=== PATIENT | female | born 1955 | race Caucasian/White ===

== ENCOUNTER → 2021-12-11 08:55 | Outpatient (CLI) | payer MEDICARE, OTHER, SELFPAY ==
[2021-12-11 10:14] LABS: Cholesterol 204 mg/dL (140-199); HDL Cholesterol 58 mg/dL (40-60); LDL Cholesterol Calculated 130 mg/dL (<100); Triglycerides 78 mg/dL (35-150)
== END ==
PROVIDERS: PCP Internal Medicine; Referring Provider Internal Medicine Cardiovascular Disease; Visit Provider Internal Medicine Cardiovascular Disease
DX: I10 Essential (primary) hypertension (principal)
CPT/HCPCS: 36415; 80061

== ENCOUNTER → 2022-03-16 13:46 | Outpatient (CLI) | payer MEDICARE, OTHER, SELFPAY ==
--- NOTE | 2022-03-16 13:52 | DI.RAD.S_ITS ---
PROCEDURE: XR HAND LT 2V INDICATIONS: GANGLION CYST OF FINGER TECHNIQUE: 2 views of the hand(s) acquired. COMPARISON: None. FINDINGS: Bones: No fractures or dislocations. Carpal bones are normally aligned. No suspicious bony lesions. Generalized decrease in osseous mineralization noted. Soft tissues: No suspicious soft tissue calcifications. Mild soft tissue swelling noted at the 5th proximal interphalangeal joint IMPRESSION: Mild 5th finger soft tissue swelling. No lytic or blastic lesion. Approved by: Fahad Mcdonough M.D. on 03/16/2022 at 14:05
[2022-03-16 14:49] LABS: BUN Creatinine Ratio 25.8 (6-22); Blood Urea Nitrogen 16 mg/dL (7-17); Carbon Dioxide 29 mmol/L (22-32); Chloride 102 mmol/L (98-107); Estimated Glomerular Filt Rate > 60 mL/min (>60); Glucose 102 mg/dL (80-110); HEMOLYSIS < 15 (0-50); Potassium 4.7 mmol/L (3.4-5.1); Sodium 137 mmol/L (137-145)
[2022-03-16 16:04] LABS: HIV 1 & 2 Ab/Ag 4th Gen Combo NEGATIVE (NEGATIVE); Hep C Virus Ab w/Reflex Quant NEGATIVE s/c (NEGATIVE)
== END ==
PROVIDERS: PCP Internal Medicine; Referring Provider Internal Medicine; Visit Provider Internal Medicine
DX: Z00.00 Encounter for general adult medical examination without abnormal findings (principal); M67.449 Ganglion, unspecified hand; I10 Essential (primary) hypertension; M79.89 Other specified soft tissue disorders
CPT/HCPCS: 36415; 73120; 80048; 86803; 87389

== ENCOUNTER → 2022-06-17 10:39 | Outpatient (CLI) | payer MEDICARE, OTHER, SELFPAY ==
[2022-06-17 12:38] LABS: Cholesterol 208 mg/dL (140-199); HDL Cholesterol 69 mg/dL (40-60); LDL Cholesterol Calculated 122 mg/dL (<100); Triglycerides 87 mg/dL (35-150)
== END ==
PROVIDERS: PCP Internal Medicine; Referring Provider Internal Medicine Cardiovascular Disease; Visit Provider Internal Medicine Cardiovascular Disease
DX: E78.5 Hyperlipidemia, unspecified (principal)
CPT/HCPCS: 36415; 80061

== ENCOUNTER → 2022-12-20 15:04 | Outpatient (CLI) | payer MEDICARE, OTHER, SELFPAY ==
--- NOTE | 2022-12-20 15:09 | DI.MRI.S_ITS ---
PROCEDURE: MR LUMBAR SPINE WO CON INDICATIONS: Radiculopathy, lumbar region TECHNIQUE: Noncontrast sagittal T1 spin echo and T2 fast echo, sagittal STIR, and T2 fast spin echo through the lumbar spine. In cases with scoliosis, additional coronal T2 fast spin echo may be performed. COMPARISON: None. FINDINGS: Retrolisthesis of L3 on L4 measuring 3 millimeters. Retrolisthesis of L2 on L3 measuring 4 millimeters. Otherwise normal alignment. Vertebral body heights maintained. No suspicious focal marrow signal abnormality. Discogenic marrow edema at the opposing L1-L2 endplates and periarticular bone marrow edema adjacent to the L1-L2 facets. Diffuse bulky facet hypertrophy at every level in the lumbar spine. Normal position and appearance of the conus. Regional soft tissues normal. T12-L1: Disc bulge flattens the ventral thecal sac and slightly flattens the ventral conus. Mild displacement of the descending L1 nerve roots in both subarticular zones by disc material and posterior osteophytic ridging of the endplates. Mild neural foraminal narrowing on the left due to foraminal component of the disc bulge and facet hypertrophy. L1-L2: Moderate spinal canal stenosis due to diffuse disc bulge and superimposed broad-based posterior disc protrusion along with posterior osteophytic ridging of the endplates. Bulky facet hypertrophy further contributes to spinal canal narrowing and left subarticular zone narrowing. There is displacement and crowding of multiple descending nerve roots, particularly in the left subarticular zone with possible impingement of the descending left L2 nerve roots. Foraminal components of the disc bulge and facet hypertrophy combine to produce moderate-severe neural foraminal narrowing on the left and mild neural foraminal narrowing on the right. L2-L3: Diffuse disc bulge flattens the ventral thecal sac and mildly displaces the descending L3 nerve roots in both subarticular zones. Moderate right and moderate-severe left neural foraminal narrowing due to foraminal components of the disc bulge and facet hypertrophy. L3-L4: Diffuse disc bulge flattens the ventral thecal sac with displacement of the descending L4 nerve roots in both subarticular zones, more pronounced on the right where there is possible impingement. Moderate to severe bilateral neural foraminal narrowing due to foraminal components of the disc bulge and facet hypertrophy. L4-L5: Diffuse disc bulge and a superimposed broad-based posterior disc protrusion flatten and indent the ventral thecal sac. Mild displacement of the descending right L5 nerve roots in the right subarticular zone. Bulky facet hypertrophy. A moderate left and severe right neural foraminal narrowing. L5-S1: Diffuse disc bulge without mass effect on the descending S1 nerve roots. Moderate bilateral foraminal narrowing. IMPRESSION: Overall moderate to severe multilevel multifactorial degenerative changes as detailed above. Dictated by: Juan Daniel Painter M.D. on 12/21/2022 at 8:43 Approved by: Juan Daniel Painter M.D. on 12/21/2022 at 8:46
== END ==
PROVIDERS: PCP Student in an Organized Health Care Education/Training Program; Referring Provider Orthopaedic Surgery; Visit Provider Orthopaedic Surgery
DX: M47.26 Other spondylosis with radiculopathy, lumbar region; M47.27 Other spondylosis with radiculopathy, lumbosacral region
CPT/HCPCS: 72148

== ENCOUNTER → 2023-03-07 11:48 | Outpatient (CLI) | payer MEDICARE, OTHER, SELFPAY ==
--- NOTE | 2023-03-07 13:31 | DI.MRI.S_ITS ---
PROCEDURE: MR HIP LT WO CON INDICATIONS: Iliotibial band syndrome, left leg TECHNIQUE: Noncontrast coronal T1 spin echo and STIR through the bony pelvis. Coronal and axial T2 fast spin echo with fat saturation, sagittal T1 spin echo, and oblique axial T2 fast spin echo with fat saturation through the hip. COMPARISON: None. FINDINGS: Image quality: Excellent. Bones and joints: Mild periarticular osteophyte formation at the bilateral hip joints. Bone marrow of the pelvic ring and proximal femurs show normal signal throughout. No intraosseous lesions or fractures. No avascular necrosis of the femoral heads. The visualized lower lumbar spine appears normally aligned. Tendons and ligaments: The gluteus medius and minimus tendons appear intact, without associated muscle atrophy. Moderate T2 signal elevation within and adjacent to the femoral insertion sites of the left gluteus medius and minimus tendons. The nearby proximal iliotibial band also appears intact. The iliopsoas tendon appears intact, without adjacent bursal fluid collections or evidence for impingement syndrome. The origin of the hamstring tendon is intact at the ischial tuberosity, as well as the associated sacrotuberous ligament. Mild T2 signal elevation within the proximal hamstring tendon and surrounding soft tissues. The straight and reflected heads of the rectus femoris muscle origin appear intact, as well as the conjoint tendon. The ligamentum teres appears intact where visualized. Labrum and cartilage: There is diffuse degenerative fraying of the left hip labrum. Cartilage surface of the femoral head appears of normal thickness. The alpha angle of the femur is within normal limits at less than 55 degrees. Soft tissues: Visualized muscles demonstrate normal bulk and internal signal. Quadratus femoris muscle demonstrates no internal edema to suggest ischiofemoral impingement. The proximal sciatic neurovascular bundle appears normal adjacent to the hamstring tendons. No free pelvic fluid. Bladder wall thickness is normal. Genitourinary structures and bowel loops appear normal where visualized. IMPRESSION: 1. Partial-thickness tears of the left gluteus medius and minimus tendons. 2. Hamstring tendinopathy. 3. Left hip osteoarthritis with associated with degenerative left hip labral fraying. Dictated by: Michelle Mauricio M.D. on 03/07/2023 at 13:25 Transcribed by: JENNYFER on 03/07/2023 at 13:26 Approved by: Michelle Mauricio M.D. on 03/07/2023 at 16:46
== END ==
PROVIDERS: PCP Student in an Organized Health Care Education/Training Program; Referring Provider Physical Medicine & Rehabilitation; Visit Provider Physical Medicine & Rehabilitation
DX: M76.32 Iliotibial band syndrome, left leg (principal); S39.013A Strain of muscle, fascia and tendon of pelvis, initial encounter; M16.12 Unilateral primary osteoarthritis, left hip
CPT/HCPCS: 73721

== ENCOUNTER → 2024-01-07 11:00 | Outpatient (CLI) | payer MEDICARE, OTHER, SELFPAY ==
[2024-01-07 12:46] LABS: Add Manual Diff / Slide Review NO; Basophils Absolute Auto 0 /uL (0-100); Basophils Percent Auto 0.6 % (0-2); Eosinophils Absolute Auto 100 /uL (0-450); Eosinophils Percent Auto 2.3 % (2-4); Hematocrit 36.9 % (36-46); Hemoglobin 12.5 g/dL (12.0-16.0); Lymphocytes Absolute Auto 3600 /uL (1100-4500); Lymphocytes Percent Auto 59.4 % (25-40); Mean Corpuscular HGB Conc 33.9 % (30-36); Mean Corpuscular Hemoglobin 32.4 PG (26-34); Mean Corpuscular Volume 95.5 fL (80-100); Monocytes Absolute Auto 400 /uL (0-900); Monocytes Percent Auto 6.2 % (3-14); Neutrophils Absolute Auto 1900 /uL (1500-7000); Neutrophils Percent Auto 31.5 % (50-75); Platelet Count 377 X10^3/uL (150-400); Red Blood Cell Count 3.86 X10^6/uL (4.0-5.2); Red Cell Distribution Width 12.2 % (11.6-14.8)
[2024-01-07 13:08] LABS: BUN Creatinine Ratio 19.7 (6-22); Blood Urea Nitrogen 12 mg/dL (7-17); Calcium 9.5 mg/dL (8.4-10.2); Carbon Dioxide 25 mmol/L (22-32); Chloride 106 mmol/L (98-107); Cholesterol 231 mg/dL (140-199); Estimated Glomerular Filt Rate > 60 mL/min (>60); Glucose 94 mg/dL (80-110); HDL Cholesterol 90 mg/dL (40-60); HEMOLYSIS < 15 (0-50); LDL Cholesterol Calculated 127 mg/dL (<100); Potassium 4.7 mmol/L (3.4-5.1); Sodium 138 mmol/L (137-145); Triglycerides 69 mg/dL (35-150)
[2024-01-10 16:39] LABS: Deamidated Gliadin Ab IgA 3 units (0-19); Deamidated Gliadin Ab IgG 2 units (0-19); Immunoglobulin A,Qn 126 mg/dL (87-352); t-Transglutaminase IgA <2 U/mL (0-3)
== END ==
LOC: LAB 11:05
PROVIDERS: Internal Medicine Cardiovascular Disease; PCP Student in an Organized Health Care Education/Training Program; Referring Provider Student in an Organized Health Care Education/Training Program; Visit Provider Student in an Organized Health Care Education/Training Program
DX: E78.5 Hyperlipidemia, unspecified (principal); I10 Essential (primary) hypertension; R19.7 Diarrhea, unspecified; E78.2 Mixed hyperlipidemia
CPT/HCPCS: 36415; 80048; 80061; 82784; 83516; 84443; 85025

== ENCOUNTER → 2024-06-21 13:43 | Outpatient (CLI) | payer MEDICARE, OTHER, SELFPAY ==
[2024-06-23 12:09] LABS: Glucose-6-Phosphate Dehydrogen 553 (127-427)
== END ==
PROVIDERS: PCP Student in an Organized Health Care Education/Training Program; Referring Provider Student in an Organized Health Care Education/Training Program; Visit Provider Student in an Organized Health Care Education/Training Program
DX: Z71.84 Encounter for health counseling related to travel (principal); Z29.89 Encounter for other specified prophylactic measures
CPT/HCPCS: 36415; 82955; 85041

== ENCOUNTER → 2024-06-27 12:37 | Outpatient (CLI) | payer MEDICARE, OTHER, SELFPAY ==
[2024-06-27 13:44] LABS: Reticulocyte Count, Percent 0.6 % (1.1-2.6)
[2024-06-27 13:47] LABS: Add Manual Diff / Slide Review NO; Basophils Absolute Auto 0 /uL (0-100); Basophils Percent Auto 0.6 % (0-2); Eosinophils Absolute Auto 100 /uL (0-450); Eosinophils Percent Auto 0.9 % (2-4); Hematocrit 35.2 % (36-46); Hemoglobin 12.1 g/dL (12.0-16.0); Lymphocytes Absolute Auto 2900 /uL (1100-4500); Lymphocytes Percent Auto 49.9 % (25-40); Mean Corpuscular HGB Conc 34.2 % (30-36); Mean Corpuscular Hemoglobin 31.6 PG (26-34); Mean Corpuscular Volume 92.3 fL (80-100); Monocytes Absolute Auto 300 /uL (0-900); Monocytes Percent Auto 5.6 % (3-14); Neutrophils Absolute Auto 2500 /uL (1500-7000); Platelet Count 431 X10^3/uL (150-400); Red Blood Cell Count 3.82 X10^6/uL (4.0-5.2); Red Cell Distribution Width 12.1 % (11.6-14.8); White Blood Cell Count 5.8 X10^3/uL (4.5-11.0)
[2024-06-27 14:13] LABS: Alanine Aminotransferase 24 IU/L (<35); Albumin 4.3 g/dL (3.5-5.0); Albumin Globulin Ratio 1.9 (1.0-2.8); Alkaline Phosphatase 70 U/L (38-126); Aspartate Aminotransferase 24 IU/L (14-36); BUN Creatinine Ratio 20.3 (6-22); Bilirubin Direct 0.3 mg/dL (0.0-0.4); Bilirubin Total 0.7 mg/dL (0.2-1.3); Blood Urea Nitrogen 14 mg/dL (7-17); C-Reactive Protein Quant < 0.5 mg/dL (<1.0); Calcium 9.9 mg/dL (8.4-10.2); Carbon Dioxide 25 mmol/L (22-32); Chloride 105 mmol/L (98-107); Estimated Glomerular Filt Rate > 60 mL/min (>60); Globulin 2.3 g/dL (1.7-4.1); Glucose 91 mg/dL (80-110); HEMOLYSIS < 15 (0-50); Lactate Dehydrogenase 156 U/L (120-246); Potassium 4.8 mmol/L (3.4-5.1); Sodium 138 mmol/L (137-145); Total Protein 6.6 g/dL (6.3-8.2)
[2024-06-27 14:14] LABS: HEMOLYSIS < 15 (0-50); Iron 111 ug/dL (37-170)
[2024-06-27 14:27] LABS: Percent Iron Saturation 48 % (15-50); Total Iron Binding Capacity 232 ug/dL (265-497)
[2024-06-27 14:38] LABS: Erythrocyte Sedimentation Rate 14 MM/HR (0-20)
[2024-06-27 14:45] LABS: Ferritin 90 ng/mL (11-264)
[2024-06-27 15:00] LABS: Vitamin B12 Reflex MMA if <400 662 pg/mL (239-931)
[2024-06-27 15:23] LABS: Folate 12.4 ng/mL (2.76-20.0)
[2024-06-27 22:09] LABS: Transferrin 187 mg/dL (206-381)
[2024-06-29 03:36] LABS: Haptoglobin 121 mg/dL (37-355)
== END ==
LOC: LAB 12:39
PROVIDERS: PCP Student in an Organized Health Care Education/Training Program; Referring Provider Student in an Organized Health Care Education/Training Program; Visit Provider Student in an Organized Health Care Education/Training Program
DX: D64.9 Anemia, unspecified (principal)
CPT/HCPCS: 36415; 80053; 82248; 82607; 82728; 82746; 83010; 83540; 83550; 83615; 85025; 85045; 85651; 86140

== ENCOUNTER 2024-07-05 17:50 | Emergency (ER) | payer MEDICARE, OTHER, SELFPAY ==
[2024-07-05] VITALS (31 sets, daily range): BP systolic 150–185; BP diastolic 71–84; PULSE 46–68; RESP 10–30; TEMP 36.1–36.9; O2SAT 92–100; BMI 24.9
--- NOTE | 2024-07-05 18:14 | DI.RAD.S_ITS ---
PROCEDURE: XR WRIST LT 2V INDICATIONS: fall with pain and deformity TECHNIQUE: 2 views of the wrist were acquired. COMPARISON: None. FINDINGS: Overlying cast material limits evaluation. Acute, displaced and dorsally angulated fractures of the distal radius and ulna along with dorsal dislocation of the distal fracture fragments and carpus. The alignment is non-anatomic. IMPRESSION: Non anatomic alignment of dorsally displaced distal radial and ulnar metadiaphyseal fractures. Dictated by: Lev Quevedo M.D. on 07/05/2024 at 19:17 Approved by: Lev Quevedo M.D. on 07/05/2024 at 19:19
--- NOTE | 2024-07-05 18:14 | DI.RAD.S_ITS ---
PROCEDURE: XR WRIST RT 2V INDICATIONS: fall with pain and deformity TECHNIQUE: 2 views of the wrist were acquired. COMPARISON: None. FINDINGS: Acute, comminuted, dorsally angulated and transversely oriented distal radial metadiaphyseal fracture with intra-articular extension to the radiocarpal joint. Severe triscaphe osteoarthritis. Please note that the provided images do not represent true AP or lateral images. IMPRESSION: Acute, comminuted, dorsally angulated distal radial fractures with intra-articular extension to the radiocarpal joint. Dictated by: Lev Quevedo M.D. on 07/05/2024 at 19:19 Approved by: Lev Quevedo M.D. on 07/05/2024 at 19:22
[2024-07-05] MEDS: HYDROMORPHONE 0.5 MG INJ IV (18:37)
[2024-07-05] MEDS: SODIUM CHLORIDE 0.9% 1,000 ML 150 ML IV (18:53)
[2024-07-05] MEDS: propofoL 200 MG/20 ML VIAL IV (18:53)
[2024-07-05] MEDS: METOCLOPRAMIDE 10 MG/2 ML INJ IV (19:02)
--- NOTE | 2024-07-05 19:28 | DI.RAD.S_ITS ---
PROCEDURE: XR WRIST LT 2V INDICATIONS: fall TECHNIQUE: 2 views of the wrist were acquired. COMPARISON: [facility], CR, XR WRIST LT 2V, 07/05/2024, 18:22. FINDINGS: Bones: Overlying cast limits evaluation. Improved alignment of dorsally dislocated distal radial and ulna fractures. Mild dorsal angulation persists Soft tissues: No suspicious soft tissue calcifications. IMPRESSION: Status post reduction with interval improvement of dorsal dislocation of distal radial and ulna fractures with mild dorsal angulation persisting. Approved by: Lupe Thorpe M.D.,Ph.D. on 07/05/2024 at 20:27
--- NOTE | 2024-07-05 19:28 | DI.RAD.S_ITS ---
PROCEDURE: XR WRIST RT 2V INDICATIONS: fall TECHNIQUE: 2 views of the wrist were acquired. COMPARISON: [facility], CR, XR WRIST LT 2V, 07/05/2024, 18:22. FINDINGS: Bones: Overlying cast limits evaluation. Improved alignment of dorsally dislocated distal radial and ulna fractures. Soft tissues: No suspicious soft tissue calcifications. IMPRESSION: Successful reduction of distal radial and ulna fractures with improved alignment. Approved by: Lupe Thorpe M.D.,Ph.D. on 07/05/2024 at 20:24
--- NOTE | 2024-07-05 19:42 | PC.NURSE ---
patient tolerated sedation well and is alert and oriented and able to protect her airway on her own
--- NOTE | 2024-07-05 20:07 | ED.GENADULT ---
HPI - General Adult General Chief complaint: Extremity Injury, Upper Stated complaint: Left wrist deformity/Right wrist pain. Pickleball Time Seen by Provider: 07/05/24 18:14 Source: EMS Mode of arrival: EMS History of Present Illness HPI narrative: Otherwise healthy 69-year-old woman was out playing pickleball today went for a ball stumbled fell landing on both wrists with obvious deformities to both wrists. Left wrist is significantly deformed and she has no sensation in the left fingers and there is no capillary refill in the left fingers. There does not seem to be any injuries to the elbow shoulders knees or other parts of her body. This is absolutely mechanical fall no concerns for syncope. Related Data Previous Rx's Medication Instructions Recorded ondansetron 4 mg disintegrating 4 mg PO Q8H PRN nausea and 07/05/24 tablet vomiting #14 tabs oxycodone-acetaminophen 5 mg-325 1 tab PO Q6H PRN pain #20 tabs 07/05/24 mg tablet Allergies Allergy/AdvReac Type Severity Reaction Status Date / Time meperidine [From Demerol] Allergy Verified 07/05/24 18:51 Penicillins Allergy Verified 07/05/24 18:51 Review of Systems Review of Systems Narrative: Pertinent positive and negative findings as per HPI Patient History alcohol intake frequency: holidays/special occasions only Substance Use Type: does not use Exam Initial Vital Signs Initial Vital Signs: Vital Signs Pulse Oximetry 92 07/05/24 17:58 General: Healthy appearing, in significant pain secondary to the fractures but is able to give a complete and coherent history. Well-nourished well-developed Respiratory: Lungs are clear to auscultation, no wheezing no rales no rhonchi. Full and symmetrical air movement Cardiac: Regular rate and rhythm no murmurs no bruits Abdomen: Soft, nontender, good bowel tones, no flank pain Skin: Warm and dry, no rashes Neurologic: Left hand with concern for significantly impaired nerve and vascular function secondary to dramatically displaced fracture. Right hand with significant fracture but is neurovascularly intact Extremities: No lower extremity trauma, no concerns with elbows or shoulders. Psych: Cooperative, appropriate insight and affect Course Orders Ordered: ED Orders 07/05/24 19:28 XR wrist LT 2V Stat XR wrist RT 2V Stat Discontinued Medications Hydromorphone HCl (Hydromorphone 0.5 Mg Inj) 0.5 mg IV Q15MIN PRN PRN Reason: Pain, Last Admin: 07/05/24 18:37 Dose: 0.5 mg Documented By: MICHELLE Sodium Chloride (Normal Saline 0.9%) 1,000 mls @ 150 mls/hr IV CONT DG Last Admin: 07/05/24 18:53 Dose: 150 mls/hr Documented By: MICHELLE Ketorolac Tromethamine (Ketorolac 30 Mg/Ml Vial) 15 mg IV NOW ONE Stop: 07/05/24 20:30 Last Admin: 07/05/24 20:39 Dose: 15 mg Documented By: MICHELLE Metoclopramide HCl (Metoclopramide 10 Mg/2 Ml Inj) 10 mg IV NOW ONE Stop: 07/05/24 19:01 Last Admin: 07/05/24 19:02 Dose: 10 mg Documented By: MICHELLE Ondansetron HCl (Ondansetron 4 Mg Odt Prepack) 1 bottle MISC DIRECTED ONE Stop: 07/05/24 20:30 Last Admin: 07/05/24 20:39 Dose: 1 bottle Documented By: MICHELLE Oxycodone/Acetaminophen (Oxycodone/Acetaminophen 5/325 Tablet) 1 tab PO NOW ONE Stop: 07/05/24 20:30 Last Admin: 07/05/24 20:40 Dose: 1 tab Documented By: MICHELLE Oxycodone/Acetaminophen (Oxycodone/Apap 5/325 Prepack) 1 bottle MISC DIRECTED ONE Stop: 07/05/24 20:30 Last Admin: 07/05/24 20:40 Dose: 1 bottle Documented By: MICHELLE Propofol (Propofol 200 Mg/20 Ml Vial) 200 mg IV NOW ONE Stop: 07/05/24 18:24 Last Admin: 07/05/24 18:53 Dose: 200 mg Documented By: MICHELLE Vital Signs Vital signs: Vital Signs - 8 hr 07/05/24 19:35 07/05/24 19:35 07/05/24 19:36 Temperature 98.2 F Pulse Rate 64 66 Respiratory Rate 12 10 L Blood Pressure 178/82 H 178/82 H Pulse Oximetry 100 100 Oxygen Delivery Method Oxygen Flow Rate 0.5 07/05/24 19:40 07/05/24 19:40 07/05/24 19:45 Temperature Pulse Rate 65 61 Respiratory Rate 23 20 Blood Pressure 160/72 H Pulse Oximetry 100 100 Oxygen Delivery Method Oxygen Flow Rate 07/05/24 19:45 07/05/24 19:50 07/05/24 19:50 Temperature Pulse Rate 66 Respiratory Rate 19 Blood Pressure 168/79 H 159/72 H Pulse Oximetry 100 Oxygen Delivery Method Oxygen Flow Rate 07/05/24 19:55 07/05/24 19:55 07/05/24 20:00 Temperature Pulse Rate 67 Respiratory Rate 16 Blood Pressure 158/74 H 150/71 H Pulse Oximetry 100 Oxygen Delivery Method Oxygen Flow Rate 07/05/24 20:00 07/05/24 20:05 07/05/24 20:05 Temperature Pulse Rate 67 65 Respiratory Rate 19 13 Blood Pressure 172/81 H Pulse Oximetry 99 99 Oxygen Delivery Method Oxygen Flow Rate 07/05/24 20:11 07/05/24 20:11 07/05/24 20:15 Temperature Pulse Rate 67 Respiratory Rate 30 H Blood Pressure 180/81 H 165/79 H Pulse Oximetry 99 Oxygen Delivery Method Oxygen Flow Rate 07/05/24 20:15 07/05/24 20:20 07/05/24 20:20 Temperature Pulse Rate 67 64 Respiratory Rate 22 29 H Blood Pressure 169/78 H Pulse Oximetry 100 100 Oxygen Delivery Method Oxygen Flow Rate 07/05/24 20:25 07/05/24 20:25 07/05/24 20:29 Temperature Pulse Rate 66 65 Respiratory Rate 18 16 Blood Pressure 178/81 H Pulse Oximetry 100 100 Oxygen Delivery Method Oxygen Flow Rate 07/05/24 20:30 07/05/24 20:37 07/05/24 21:03 Temperature Pulse Rate 67 68 Respiratory Rate 12 16 Blood Pressure 168/77 H 166/79 H Pulse Oximetry 100 Oxygen Delivery Method Room Air Oxygen Flow Rate Medical Decision Making Lab Data Labs: Point of Care Testing Test Results Not applicable Point of care testing: Point of Care Testing Test Results Not applicable MDM Narrative Medical decision making narrative: CC: Bilateral wrist fractures Complicating co-morbidities: None Data collected from: patient Differential considered: Simple fractures, dislocations, vascular injury to the left side, additional trauma not yet identified secondary to wrist pain Exam documented above, pertinent findings include: Otherwise healthy appearing obvious bilateral wrist fractures left worse than the right. Impaired neurovascular exam in the left appropriate on the right. Imaging studies independently reviewed: X-ray, left wrist. Acute displaced, dorsally angulated fractures of the distal radius and ulna with dorsal dislocation of the distal fragment fractures and carpus. Non anatomic alignment. Postreduction films show much improved alignment still some mild dorsal angulation and multiple fracture pieces displaced. X-ray right wrist Acute, comminuted, dorsally angulated and transversely oriented distal radial metadiaphyseal fracture with intra-articular extension to the radiocarpal joint. Postreduction films show significantly improved anatomic alignment Consultations: Care is reviewed with Dr. Redd. Agrees with the reduction an outpatient follow up. Did not request any additional imaging such as CT Treatments: Sedation reduction of both wrists bilaterally with sugar-tong splint placement Re-evaluations: Doing much better after awakening from sedation. Pain is controlled. Sling is placed on the left side that is slightly larger than would typically use. The left arm is positioned and then the right arm is then positioned inside the sling as well. Discussion: 69-year-old woman with bilateral severe wrist fractures both been reduced and splinted. She will need orthopedic follow up likely surgery on both wrists for definitive treatment and she is aware of this. Will make sure that she has pain medication available for use at home, reviewed reasons to return to the emergency department in including pain increasing to the point that it can not be controlled to suggest that is swelling is causing problems are that her splints need adjustment. She is given instructions to contact Dr. Redd's office. Questions are answered, no additional imaging is indicated and she is safe for discharge Discharge Plan Departure Patient Disposition: Home Clinical Impression: Fracture of wrist Qualifiers: Encounter type: initial encounter Fracture type: closed Laterality: left Qualified Code(s): S62.102A - Fracture of unspecified carpal bone, left wrist, initial encounter for closed fracture Closed fracture distal radius and ulna Qualifiers: Encounter type: initial encounter Laterality: right Qualified Code(s): S52.501A - Unspecified fracture of the lower end of right radius, initial encounter for closed fracture Instructions: DI for Wrist Fracture Activity Restrictions/Additional Instructions: Thank you for coming in tonight, I am sorry that you had such a bad game of pickle ball You have significant fractures of both of your wrists. In the emergency department I was able to reduce them and put them in splints. You have the sling to help hold the weight of the splints. You will need to see the orthopedic surgeons for definitive treatment and very likely will need surgery on both wrists. Please call Dr. Redd's office at [facility], the phone number is [phone]. Explain that you are in the emergency department and you have bilateral wrist fractures that need definitive treatment Using 400 mg of ibuprofen (2 [id number] pills) and 1 Tylenol every 6 hours can be very helpful in controlling pain. For severe pain you can use 400 mg of ibuprofen and 1 Percocet. Percocet is a narcotic and does have addictive potential. It will make you constipated. Any day that you use Percocet please also use a scoop of MiraLax to prevent constipation. I have given you a prescription of Zofran that is a nausea medicine that you can use as needed for nausea related to the pain medication. Prescriptions have been electronically transmitted to [facility] If you find that you are getting worse or develop any new symptoms, please feel free to return to the emergency department for further evaluation. Prescriptions: New ondansetron 4 mg tablet,disintegrating 4 mg PO Q8H PRN (Reason: nausea and vomiting) Qty: 14 0RF oxycodone-acetaminophen 5-325 mg tablet 1 tab PO Q6H PRN (Reason: pain) Qty: 20 0RF Referrals: Milena Linton DO [Primary Care Provider] - Stand Alone Forms: Patient Portal/API
[2024-07-05] MEDS: ONDANSETRON 4 MG ODT PREPACK 1 BOTTLE MISC (20:39)
[2024-07-05] MEDS: KETOROLAC 30 MG/ML VIAL 15 MG IV (20:39)
[2024-07-05] MEDS: OXYCODONE/ACETAMINOPHEN 5/325 TABLET 1 TAB PO (20:40)
[2024-07-05] MEDS: OXYCODONE/APAP 5/325 PREPACK 1 BOTTLE MISC (20:40)
== END 2024-07-05 21:09 | disposition home or self-care (01) ==
PROVIDERS: Emergency Provider Emergency Medicine; PCP Student in an Organized Health Care Education/Training Program
DX: S62.102A Fracture of unspecified carpal bone, left wrist, initial encounter for closed fracture (principal); S52.501A Unspecified fracture of the lower end of right radius, initial encounter for closed fracture; W18.30XA Fall on same level, unspecified, initial encounter; Y93.69 Activity, other involving other sports and athletics played as a team or group
CPT/HCPCS: 25605; 73100; 96361; 96374; 96375; 99152; 99285; J1170; J1885; J2704; J2765

== ENCOUNTER 2024-07-12 09:11 | Day surgery (SDC) | payer MEDICARE, OTHER, SELFPAY ==
[2024-07-11 09:38] VITALS: BMI 24.7
[2024-07-12] VITALS (7 sets, daily range): BP systolic 139–184; BP diastolic 64–84; PULSE 54–68; RESP 12–20; TEMP 36.4–36.6; O2SAT 93–100; BMI 24.9
--- NOTE | 2024-07-12 10:19 | PM.PREOP ---
Pre-operative Note Interval Note History & Physical reviewed/Exam performed by Physician: Yes Changes to H&P: No
[2024-07-12] MEDS: SCOPOLAMINE 1 PATCH TOP (10:36)
--- NOTE | 2024-07-12 10:48 | SUR.PREOP ---
Block start time [1034] . Timeout completed. Monitoring initiated and maintained throughout procedure. Oxygen and medications given per anesthesiologist instructions. Patient remained stable throughout procedure, no adverse reactions noted. Block end time [1042].
[2024-07-12] MEDS: LACTATED RINGERS 1,000 ML 42 ML IV ×2 (10:49→12:19)
[2024-07-12] MEDS: CEFAZOLIN 2 GM/100 ML PREMIX 100 ML IV (10:59)
--- NOTE | 2024-07-12 11:13 | SUR.OPER ---
Supine on padded OR bed, head on pillow, arms prepped and draped in field and extended on padded arm boards at <90 degrees abduction, legs uncrossed, safety belt at thigh, tape over blanket over lower legs.
[2024-07-12] MEDS: BUPIVACAINE 0.25% (PF) 30 ML, EPINEPHrine 0.15 MG INJ (11:53)
--- NOTE | 2024-07-12 12:48 | P.OP_ITS ---
Operative Date/Time/Diagnoses Date of procedure: 07/12/24 Time of procedure: 11:00 Pre-op diagnosis: Bilateral distal radius fractures Post-op diagnosis: same Procedure & Clinicians Procedure: Open reduction internal fixation of bilateral distal radius fractures Same procedure as scheduled: Yes Indications: Bilateral distal radius fracture. Right-sided extra-articular left side intra- articular. Surgeon: Pramod Redd Click Yes if Unassisted: Yes Anesthesia Type: General and Peripheral nerve block Operative Notes Findings: Right extra-articular distal radius fracture. Left intra-articular distal radius fracture with more significant displacement and comminution. Closure Type: primary Applied: implant(s) (Bilateral Arthrex distal radius plate) Tourniquet time (min): 39 (Thirty-nine minutes on the right side and 49 minutes on the left side) Procedure in detail: On date of service, patient was met in the holding area where the operative site was signed and witnessed by the OR staff. The surgery was once again discussed with the patient and any remaining questions or concerns were answered to the patient's full satisfaction. Time-out was performed verifying patient's name procedure and operative site. Patient was taken back to the operating theater and placed on the operating table in a supine position. Great care was taken to ensure that all bony prominences were appropriately padded. Well-padded tourniquet was placed up along the upper extremity. Another time-out was performed verifying patient's name, procedure, and operative site. The bilateral upper extremity was then prepped and draped in the normal sterile fashion. Esmarch was used to exsanguinate the right limb and the tourniquet was turned up to 250 mm of mercury. Fifteen blade was used to expose the distal radius. An incision was made over the FCR tendons. The FCR tendon was retracted and the floor of the tendon was opened with a 15 blade. The FPL tendon and muscle belly was retracted ulnarly giving us good visualization of the pronator quadratus. The pronator quadratus was excised off the distal radius using the 15 blade and then finished with a periosteal elevator. Next the brachia radialis attachment to the radial styloid was released to help with overall reduction. Retractors were placed allowing us good visualization of the distal radius as well as the shaft. A reduction maneuver was performed and a K-wire was placed holding a provisional reduction of the intra-articular distal radius fracture. C-arm was brought in to verify overall reduction. Once we were satisfied with the overall reduction, a plate was placed and held provisionally with K-wires. C-arm was once again used to verify plate positioning as well as reduction. The plate was then fixated to the distal fragment using locking screws. Lateral C-arm views were used to verify that the screws were not intra-articular or broaching the dorsal cortex. At this point we are able to use the plate to help fine tune the overall reduction. Once we were satisfied with the overall reduction the plate was then secured to the shaft with a combination of locking and nonlocking screws. Final x-rays were obtained. The wound was copiously irrigated and closed in a layered fashion. The wrist and hand were cleaned dried dressed. We then turned our attention to the left wrist. Esmarch was used to exsanguinate the left limb and the tourniquet was turned up to 250 mm of mercury. Fifteen blade was used to expose the distal radius. An incision was made over the FCR tendons. The FCR tendon was retracted and the floor of the tendon was opened with a 15 blade. The FPL tendon and muscle belly was retracted ulnarly giving us good visualization of the pronator quadratus. The pronator quadratus was excised off the distal radius using the 15 blade and then finished with a periosteal elevator. Next the brachia radialis attachment to the radial styloid was released to help with overall reduction. Retractors were placed allowing us good visualization of the distal radius as well as the shaft. A reduction maneuver was performed and a K-wire was placed holding a provisional reduction of the intra-articular distal radius fracture. C-arm was brought in to verify overall reduction. Once we were satisfied with the overall reduction, a plate was placed and held provisionally with K-wires. C-arm was once again used to verify plate positioning as well as reduction. The plate was then fixated to the distal fragment using locking screws. Lateral C-arm views were used to verify that the screws were not intra-articular or broaching the dorsal cortex. At this point we are able to use the plate to help fine tune the overall reduction. Once we were satisfied with the overall reduction the plate was then secured to the shaft with a combination of locking and nonlocking screws. Final x-rays were obtained. The wound was copiously irrigated and closed in a layered fashion. The wrist and hand were cleaned dried dressed. Patient was placed into a splint and taken to the PACU in stable condition. Complications: none Post-operative Condition: stable Disposition: PACU Plan for aftercare: Patient will follow our postoperative protocol for distal radius fractures. No restrictions when it comes to range of motion of the wrist or fingers. No lifting more than 2-3 lb.
[2024-07-12] MEDS: fentaNYL 100 MCG/2 ML INJ IV (13:03)
[2024-07-12] MEDS: ONDANSETRON 4 MG/2 ML INJ IV (13:06)
[2024-07-12] MEDS: OXYCODONE IR 5 MG TABLET PO ×2 (13:16→13:50)
[2024-07-12] MEDS: hydrOXYzine 50 MG/ML INJ 25 MG IM (13:49)
[2024-07-12] MEDS: ACETAMINOPHEN IV 1,000 MG/100 ML VIAL 400 MG IV (14:45)
--- NOTE | 2024-07-12 14:51 | SUR.PHASEII ---
Patient continues to c/o pain to bilateral upper extremties. IV tylenol given in phase 2; notified anesthesia provider; orders received to give Toradol 30 mg IV now.
[2024-07-12] MEDS: KETOROLAC 30 MG/ML VIAL IV (15:01)
== END 2024-07-12 15:56 | disposition home or self-care (01) ==
PROVIDERS: PCP Student in an Organized Health Care Education/Training Program; Referring Provider Student in an Organized Health Care Education/Training Program; Visit Provider Orthopaedic Surgery
PROC: (CPT 25608; principal; 2024-07-12 10:45)
DX: S52.551A Other extraarticular fracture of lower end of right radius, initial encounter for closed fracture (principal); S52.572A Other intraarticular fracture of lower end of left radius, initial encounter for closed fracture; Y93.73 Activity, racquet and hand sports; G89.18 Other acute postprocedural pain
CPT/HCPCS: 25608; 64450; C1713; J0134; J0171; J0330; J0690; J1100; J1170; J1885; J2250; J2405; J2704; J3010; J3410

== ENCOUNTER → 2024-08-30 10:39 | Outpatient (CLI) | payer MEDICARE, OTHER, SELFPAY ==
[2024-08-30 17:09] LABS: Add Manual Diff / Slide Review NO; Basophils Absolute Auto 0 /uL (0-100); Basophils Percent Auto 0.6 % (0-2); Eosinophils Absolute Auto 100 /uL (0-450); Eosinophils Percent Auto 1.5 % (2-4); Hematocrit 37.3 % (36-46); Hemoglobin 12.7 g/dL (12.0-16.0); Lymphocytes Absolute Auto 4000 /uL (1100-4500); Lymphocytes Percent Auto 54.1 % (25-40); Mean Corpuscular HGB Conc 34.1 % (30-36); Mean Corpuscular Volume 93.9 fL (80-100); Monocytes Absolute Auto 300 /uL (0-900); Monocytes Percent Auto 3.8 % (3-14); Neutrophils Absolute Auto 2900 /uL (1500-7000); Platelet Count 372 X10^3/uL (150-400); Red Blood Cell Count 3.98 X10^6/uL (4.0-5.2); Red Cell Distribution Width 12.6 % (11.6-14.8); White Blood Cell Count 7.3 X10^3/uL (4.5-11.0)
[2024-08-30 18:09] LABS: Erythrocyte Sedimentation Rate 3 MM/HR (0-20)
== END ==
PROVIDERS: PCP Student in an Organized Health Care Education/Training Program; Referring Provider Student in an Organized Health Care Education/Training Program; Visit Provider Student in an Organized Health Care Education/Training Program
DX: D72.820 Lymphocytosis (symptomatic) (principal); D75.839 Thrombocytosis, unspecified; D64.9 Anemia, unspecified
CPT/HCPCS: 36415; 85025; 85651; 88184

== ENCOUNTER → 2024-09-05 15:03 | Outpatient (CLI) | payer MEDICARE, OTHER, SELFPAY ==
[2024-09-05 19:07] LABS: Sample 1 Time NEGATIVE; Sample 2 time NEGATIVE; Sample 3 time NEGATIVE
== END ==
LOC: LAB 15:05
PROVIDERS: PCP Student in an Organized Health Care Education/Training Program; Referring Provider Student in an Organized Health Care Education/Training Program; Visit Provider Student in an Organized Health Care Education/Training Program
DX: D64.9 Anemia, unspecified (principal)
CPT/HCPCS: 82270

== ENCOUNTER → 2024-11-06 16:50 | Outpatient (CLI) | payer MEDICARE, OTHER, SELFPAY ==
--- NOTE | 2024-11-06 16:51 | DI.MRI.S_ITS ---
PROCEDURE: MR SHOULDER RT WO CON INDICATIONS: ROTATOR CUFF SYNDROME RT SHOULDER TECHNIQUE: Noncontrast oblique coronal T2 fast spin echo with fat saturation, oblique sagittal T1 spin echo and T2 fast spin echo with fat saturation, axial T1 spin echo and T2 fast spin echo with fat saturation through the shoulder. COMPARISON: [facility], CR, XR SHOULDER 2+ VIEWS RIGHT, 10/26/2024, 15:55. FINDINGS: Image quality: Excellent. Rotator cuff: In the supraspinatus, there is near full-thickness tear at the mid footprint, extending posteriorly to the anterior infraspinatus. The teres minor is unremarkable. The subscapularis is unremarkable. No muscle edema or fatty atrophy. Bones and bursae: Mild degenerative changes of the acromioclavicular joint. Type 2 acromion. No os acromiale. Mild subacromial/subdeltoid bursitis. Mild subchondral cystic changes at the posterior greater tuberosity, reactive. No acute fracture. No focal chondral defect of the glenohumeral articulation. Capsule and soft tissues: Superior labral tear, extending anteriorly to the anterior labrum. No paralabral cyst. The extra-articular biceps tendon, and the intra-articular biceps tendon are unremarkable. No significant glenohumeral effusion. No intra-articular body. IMPRESSION: 1. Mild degenerative changes of the acromioclavicular joint. 2. Near full-thickness tear at the mid supraspinatus, extending to the anterior infraspinatus. 3. Labral tear. No paralabral cyst. Dictated by: Jayleen Rees M.D. on 11/07/2024 at 10:09 Approved by: Jayleen Rees M.D. on 11/07/2024 at 10:21
== END ==
PROVIDERS: PCP Student in an Organized Health Care Education/Training Program; Referring Provider Physician Assistant; Visit Provider Physician Assistant
DX: S43.431A Superior glenoid labrum lesion of right shoulder, initial encounter (principal); M75.111 Incomplete rotator cuff tear or rupture of right shoulder, not specified as traumatic
CPT/HCPCS: 73221

== ENCOUNTER → 2025-01-22 10:38 | Outpatient (CLI) | payer MEDICARE, OTHER, SELFPAY ==
[2025-01-22 11:37] LABS: Alanine Aminotransferase 32 IU/L (<35); Albumin 4.3 g/dL (3.5-5.0); Alkaline Phosphatase 64 U/L (38-126); Aspartate Aminotransferase 30 IU/L (14-36); Bilirubin Total 0.5 mg/dL (0.2-1.3); Bilirubin Unconjugated 0.4 mg/dL (0.0-1.1); Globulin 2.1 g/dL (1.7-4.1); HEMOLYSIS < 15 (0-50); Total Protein 6.4 g/dL (6.3-8.2)
== END ==
PROVIDERS: PCP Student in an Organized Health Care Education/Training Program; Referring Provider Student in an Organized Health Care Education/Training Program; Visit Provider Student in an Organized Health Care Education/Training Program
DX: R74.01 Elevation of levels of liver transaminase levels (principal)
CPT/HCPCS: 36415; 80076

== ENCOUNTER → 2025-02-18 11:16 | Outpatient (CLI) | payer MEDICARE, OTHER, SELFPAY ==
[2025-02-18 12:06] LABS: Hematocrit 34.3 % (36-46); Hemoglobin 11.8 g/dL (12.0-16.0); Mean Corpuscular HGB Conc 34.4 % (30-36); Mean Corpuscular Volume 93.2 fL (80-100); Platelet Count 352 X10^3/uL (150-400); Red Blood Cell Count 3.68 X10^6/uL (4.0-5.2); Red Cell Distribution Width 12.1 % (11.6-14.8); White Blood Cell Count 5.9 X10^3/uL (4.5-11.0)
[2025-02-18 12:23] LABS: BUN Creatinine Ratio 21.7 (6-22); Blood Urea Nitrogen 13 mg/dL (7-17); Calcium 9.1 mg/dL (8.4-10.2); Carbon Dioxide 22 mmol/L (22-32); Chloride 103 mmol/L (98-107); Cholesterol 168 mg/dL (140-199); Estimated Glomerular Filt Rate > 60 mL/min (>60); Glucose 86 mg/dL (70-99); HDL Cholesterol 55 mg/dL (40-60); HEMOLYSIS < 15 (0-50); LDL Cholesterol Calculated 102 mg/dL (<100); Potassium 4.5 mmol/L (3.4-5.1); Sodium 132 mmol/L (137-145); Triglycerides 53 mg/dL (35-150)
== END ==
PROVIDERS: PCP Student in an Organized Health Care Education/Training Program; Referring Provider Internal Medicine Cardiovascular Disease; Visit Provider Internal Medicine Cardiovascular Disease
DX: I10 Essential (primary) hypertension (principal); E78.5 Hyperlipidemia, unspecified
CPT/HCPCS: 36415; 80048; 80061; 85027

== ENCOUNTER → 2025-04-10 09:25 | Outpatient (CLI) | payer MEDICARE, OTHER, SELFPAY ==
[2025-04-10 10:49] LABS: Add Manual Diff / Slide Review NO; Basophils Absolute Auto 0 /uL (0-100); Basophils Percent Auto 0.6 % (0-2); Eosinophils Absolute Auto 200 /uL (0-450); Eosinophils Percent Auto 2.6 % (2-4); Hematocrit 36.9 % (36-46); Hemoglobin 12.7 g/dL (12.0-16.0); Lymphocytes Absolute Auto 3400 /uL (1100-4500); Lymphocytes Percent Auto 45.8 % (25-40); Mean Corpuscular HGB Conc 34.3 % (30-36); Mean Corpuscular Volume 93.3 fL (80-100); Monocytes Absolute Auto 400 /uL (0-900); Monocytes Percent Auto 5.4 % (3-14); Neutrophils Absolute Auto 3400 /uL (1500-7000); Neutrophils Percent Auto 45.6 % (50-75); Platelet Count 361 X10^3/uL (150-400); Red Blood Cell Count 3.96 X10^6/uL (4.0-5.2); Red Cell Distribution Width 12.6 % (11.6-14.8); White Blood Cell Count 7.5 X10^3/uL (4.5-11.0)
[2025-04-10 11:18] LABS: BUN Creatinine Ratio 30.8 (6-22); Blood Urea Nitrogen 20 mg/dL (7-17); Calcium 9.9 mg/dL (8.4-10.2); Carbon Dioxide 23 mmol/L (22-32); Chloride 103 mmol/L (98-107); Estimated Glomerular Filt Rate > 60 mL/min (>60); Glucose 71 mg/dL (70-99); HEMOLYSIS < 15 (0-50); Potassium 5.2 mmol/L (3.4-5.1); Sodium 136 mmol/L (137-145)
== END ==
PROVIDERS: PCP Student in an Organized Health Care Education/Training Program; Referring Provider Student in an Organized Health Care Education/Training Program; Visit Provider Student in an Organized Health Care Education/Training Program
DX: D64.9 Anemia, unspecified (principal)
CPT/HCPCS: 36415; 80048; 85025

== ENCOUNTER → 2025-05-21 09:36 | Outpatient (CLI) | payer MEDICARE, OTHER, SELFPAY ==
--- NOTE | 2025-05-21 09:40 | DI.RAD.S_ITS ---
PROCEDURE: XR CERVICAL SPINE 2V OR 3V INDICATIONS: Cervicalgia TECHNIQUE: 3 view(s) of the cervical spine were acquired. COMPARISON: None. FINDINGS: Bones: No fractures or dislocations to the T1 level. The lateral masses of C1 appear intact on the odontoid view. No suspicious bony lesions. Moderate to severe degenerative disc disease, most prominent at C3 through C6. Diffuse facet arthrosis. Soft tissues: No prevertebral soft tissue swelling. IMPRESSION: Moderate to severe, multilevel degenerative disc disease and diffuse facet arthrosis. Dictated by: Geovany Hernández M.D. on 05/21/2025 at 12:58 Approved by: Geovany Hernández M.D. on 05/21/2025 at 12:58
[2025-05-21 10:58] LABS: Alanine Aminotransferase 38 IU/L (<35); Albumin 4.6 g/dL (3.5-5.0); Albumin Globulin Ratio 1.7 (1.0-2.8); Alkaline Phosphatase 80 U/L (38-126); Blood Urea Nitrogen 21 mg/dL (7-17); Calcium 9.5 mg/dL (8.4-10.2); Carbon Dioxide 26 mmol/L (22-32); Chloride 101 mmol/L (98-107); Estimated Glomerular Filt Rate > 60 mL/min (>60); Globulin 2.7 g/dL (1.7-4.1); Glucose 88 mg/dL (70-99); HEMOLYSIS < 15 (0-50); Lipase 118 U/L (23-300); Potassium 4.7 mmol/L (3.4-5.1); Sodium 135 mmol/L (137-145); Total Protein 7.3 g/dL (6.3-8.2)
[2025-05-21 11:17] LABS: Free T4, Direct Thyroxine 0.88 ng/dL (0.78-2.19)
[2025-05-21 11:31] LABS: Thyroid Stimulating Hormone 1.83 uIU/mL (0.47-4.68)
[2025-05-21 11:49] LABS: Vitamin B12 Reflex MMA if <400 580 pg/mL (239-931)
== END ==
PROVIDERS: PCP Student in an Organized Health Care Education/Training Program; Referring Provider Student in an Organized Health Care Education/Training Program; Visit Provider Student in an Organized Health Care Education/Training Program
DX: M50.31 Other cervical disc degeneration, high cervical region (principal); M47.812 Spondylosis without myelopathy or radiculopathy, cervical region; R20.2 Paresthesia of skin; G89.29 Other chronic pain; R10.11 Right upper quadrant pain
CPT/HCPCS: 36415; 72040; 80053; 82607; 83690; 84439; 84443

== ENCOUNTER → 2025-09-27 15:58 | Outpatient (CLI) | payer MEDICARE, OTHER, SELFPAY ==
--- NOTE | 2025-09-27 15:59 | DI.RAD.S_ITS ---
PROCEDURE: XR WRIST LT MIN 3V INDICATIONS: Left wrist/hand pain TECHNIQUE: 4 views of the wrist were acquired. COMPARISON: [facility], CR, XR WRIST RT 2V, 07/05/2024, 19:27. [facility], CR, XR WRIST LT 2V, 07/05/2024, 18:22. [facility], CR, XR WRIST 3+ VIEWS BILATERAL, 01/07/2025, 11:00. FINDINGS: Bones: Chronic nonunited ulnar styloid fracture. Patient is status post with volar plain screw fixation of a distal radius fracture. Hardware is intact. Fracture has healed. Moderate to marked 1st carpometacarpal joint space narrowing and osteophytes. Osteopenia is noted. Soft tissues: No suspicious soft tissue calcifications. IMPRESSION: No acute bony abnormality. Chronic on the styloid in distal radius metaphysis fracture. Hardware from a previous volar plate and screw fixation of the distal radius is intact. Dictated by: Sarahi Perez M.D. on 09/29/2025 at 20:20 Approved by: Sarahi Perez M.D. on 09/29/2025 at 20:21
--- NOTE | 2025-09-27 15:59 | DI.RAD.S_ITS ---
PROCEDURE: XR HAND LT MIN 3V INDICATIONS: Left wrist/hand pain TECHNIQUE: 3 views of the hand(s) acquired. COMPARISON: [facility], CR, XR WRIST LT MIN 3V, 09/27/2025, 16:05. [facility], CR, XR HAND LT 2V, 03/16/2022, 13:45. FINDINGS: Bones: No acute fracture or dislocations. Carpal bones are normally aligned. No suspicious bony lesions. Nonunited on a styloid fracture. Distal radius metaphyseal fracture after volar plate and screw fixation noted. Marked 1st carpometacarpal joint space narrowing and osteophytes. Osteopenia. Multifocal PIP and DIP joint space narrowing throughout the 2nd through 5th digits. Soft tissues: Moderate soft tissue swelling centered at the left 4th PIP joint. Evaluation limited due to injury artifact at the 2nd digit base. IMPRESSION: No acute bony abnormality. Dictated by: Sarahi Perez M.D. on 09/29/2025 at 20:21 Approved by: Sarahi Perez M.D. on 09/29/2025 at 20:23
== END ==
PROVIDERS: PCP Student in an Organized Health Care Education/Training Program; Referring Provider Nurse Practitioner Family; Visit Provider Nurse Practitioner Family
DX: S69.92XA Unspecified injury of left wrist, hand and finger(s), initial encounter (principal); S52.612K Displaced fracture of left ulna styloid process, subsequent encounter for closed fracture with nonunion; M85.842 Other specified disorders of bone density and structure, left hand; W18.30XA Fall on same level, unspecified, initial encounter
CPT/HCPCS: 73110; 73130